=== PATIENT | female | born 1985 | race Caucasian/White ===

== ENCOUNTER → 2016-08-18 | Emergency (ER) | payer OTHER ==
[~2016-08-18] MED LIST: RHO(D) IMMUNE GLOBULIN 1,500 UNIT DISP.SYRIN IM ONE
[2016-08-18 11:25] VITALS: BMI 21.5
--- NOTE | 2016-08-18 12:19 | PDOC ---
History of Present Illness - History of Present Illness Initial Comments: 08/18/16 12:19 The patient is a 31 year old female, 6 weeks , , with no significant past medical history, who presents to the emergency department with vaginal bleeding in today. She states she noticed vaginal bleeding this morning when she went to the bathroom. She also reports very mild abdominal cramps. She states her two children were born full-term without complications. She states she has not seen her [employer] for this yet. She denies chest pain, shortness of breath, headache and dizziness. She denies fever, chills, nausea, vomit, diarrhea and constipation. She denies dysuria, frequency, urgency and hematuria. Allergies: NKDA PCP - Dr. Montana Olson <Jacy French - Last Filed: 08/18/16 13:47> <Rupa Quiñones - Last Filed: 08/18/16 15:52> - General Chief Complaint: Vaginal Bleeding Stated Complaint: BLEEDING (6 WKS ) Time Seen by Provider: 08/18/16 11:29 Past History <Jacy French - Last Filed: 08/18/16 13:47> - Past Medical History Asthma: Yes Cancer: No Cardiac Disorders: No Diabetes: No HTN: No Seizures: No Thyroid Disease: No - Psycho/Social/Smoking Cessation Hx Anxiety: No Suicidal Ideation: No Smoking History: Never smoked Have you smoked in the past 12 months: No Hx Alcohol Use: No Drug/Substance Use Hx: No Substance Use Type: None Hx Substance Use Treatment: No <Rupa Quiñones - Last Filed: 08/18/16 15:52> - Past Medical History Allergies/Adverse Reactions: Allergies Allergy/AdvReac Type Severity Reaction Status Date / Time No Known Allergies Allergy Verified 08/18/16 11:25 Home Medications: Ambulatory Orders Multivitamin [Poly-Vitamin] 1 each PO DAILY 08/18/16 Review of Systems - Review of Systems Able to Perform ROS?: Yes Comments:: 08/18/16 12:20 GENERAL/CONSTITUTIONAL: No fever or chills. No weakness. HEAD, EYES, EARS, NOSE AND THROAT: No change in vision. No ear pain or discharge. No sore throat. CARDIOVASCULAR: No chest pain or shortness of breath. RESPIRATORY: No cough, wheezing, or hemoptysis. GASTROINTESTINAL: No nausea, vomiting, diarrhea or constipation. GENITOURINARY: No dysuria, frequency, or change in urination. MUSCULOSKELETAL: No joint or muscle swelling or pain. No neck or back pain. REPRODUCTIVE: (+) vaginal bleeding in 6th week of SKIN: No rash NEUROLOGIC: No headache, vertigo, loss of consciousness, or change in strength/ sensation. ENDOCRINE: No increased thirst. No abnormal weight change. HEMATOLOGIC/LYMPHATIC: No anemia, easy bleeding, or history of blood clots. ALLERGIC/IMMUNOLOGIC: No hives or skin allergy. <Jacy French - Last Filed: 08/18/16 13:47> *Physical Exam - Vital Signs Last Vital Signs Temp Pulse Resp BP Pulse Ox 98.6 F 75 20 130/66 100 08/18/16 11:23 08/18/16 11:23 08/18/16 11:08/18/16 11:08/18/16 11:23 - Physical Exam Comments: 08/18/16 12:21 GENERAL: Awake, alert, and fully oriented, in no acute distress HEAD: No signs of trauma EYES: PERRLA, EOMI, sclera anicteric, conjunctiva clear ENT: Auricles normal inspection, hearing grossly normal, nares patent, oropharynx clear without exudates. Moist mucosa NECK: Normal ROM, supple, no lymphadenopathy, JVD, or masses LUNGS: Breath sounds equal, clear to auscultation bilaterally. No wheezes, and no crackles HEART: Regular rate and rhythm, normal S1 and S2, no murmurs, rubs or gallops ABDOMEN: Soft, nontender, normoactive bowel sounds. No guarding, no rebound. No masses EXTREMITIES: Normal range of motion, no edema. No clubbing or cyanosis. No cords, erythema, or tenderness NEUROLOGICAL: Cranial nerves II through XII grossly intact. Normal speech, normal gait SKIN: Warm, Dry, normal turgor, no rashes or lesions noted. <Jacy French - Last Filed: 08/18/16 13:47> - Vital Signs Last Vital Signs Temp Pulse Resp BP Pulse Ox 98.6 F 75 20 130/66 100 08/18/16 11:23 08/18/16 11:23 08/18/16 11:23 08/18/16 11:23 08/18/16 11:23 - Physical Exam Comments: : No external lesions. +Mod blood in the vault. No adnexal tenderness. Os closed. <Rupa Quiñones - Last Filed: 08/18/16 15:52> ED Treatment Course - LABORATORY CBC & Chemistry Diagram: 08/18/16 12:22 08/18/16 12:22 - RADIOLOGY Radiograph Interpretation: 08/18/16 13:47 Transabdominal US in was read by Dr. Rogel at 13:42 Impression: single intrauterine gestation of 12 weeks 6 days. heart rate 144 bpm. recommend US level II anatomic survey at 21-22 weeks gestation. <Jacy French - Last Filed: 08/18/16 13:47> - LABORATORY CBC & Chemistry Diagram: 08/18/16 12:22 08/18/16 12:22 <Rupa Quiñones - Last Filed: 08/18/16 15:52> Medical Decision Making - Medical Decision Making Patient found to have a 12 6/7 WGA intrauterine on ultrasound. Rhogam given, as she is Rh negative. She has scheduled follow-up with Dr. Morrow. <Rupa Quiñones - Last Filed: 08/18/16 15:52> *DC/Admit/Observation/Transfer - Attestations Scribe Attestion: 08/18/16 12:21 Documentation prepared by Jacy French, acting as medical billing manager for Rupa Quiñones MD, <Jacy French - Last Filed: 08/18/16 13:47> - Discharge Dispostion Admit: No <Rupa Quiñones - Last Filed: 08/18/16 15:52> Diagnosis at time of Disposition: Threatened - Discharge Dispostion Disposition: HOME Condition at time of disposition: Stable - Referrals Referrals: Montana Olson MD [Primary Care Provider] - - Patient Instructions Printed Discharge Instructions: DI for Threatened Print Language: [place]
[2016-08-18 12:21] LABS: URINE APPEARANCE SLCLOUDY; URINE BILIRUBIN NEGATIVE (NEGATIVE); URINE COLOR STRAW; URINE GLUCOSE (UA) NEGATIVE (NEGATIVE); URINE KETONE NEGATIVE (NEGATIVE); URINE LEUK ESTERASE NEGATIVE (NEGATIVE); URINE NITRITE NEGATIVE (NEGATIVE); URINE PROTEIN NEGATIVE (NEGATIVE); URINE UROBILINOGEN NEGATIVE E.U./dl (0.2-1.0)
[2016-08-18 12:26] LABS: URINE BLOOD 3+ (NEGATIVE)
[2016-08-18 12:32] LABS: BASOPHIL 0.3 % (0-2.0); EOSINOPHIL 0.4 % (0-4.5); MCH 28.9 pg (25.7-33.7); MCHC 33.6 g/dl (32.0-36.0); MEAN CELL VOLUME 85.8 fl (80-96); MEAN PLT VOLUME 8.7 fl (7.5-11.1); NEUTROPHILS 81.1 % (42.8-82.8); PLATELET COUNT 154 K/MM3 (134-434); RDW 13.6 % (11.6-15.6); WHITE BLOOD COUNT 8.8 K/mm3 (4.0-10.0)
[2016-08-18 12:33] LABS: URINE RBC 1297 /hpf (0-3); URINE WBC 1 /hpf (3-5)
[2016-08-18 13:00] LABS: ALBUMIN 3.7 g/dl (3.4-5.0); ANION GAP 10 (8-16); CO2 26 mmol/L (21-32); CREATININE 0.6 mg/dL (0.55-1.02); GLUCOSE,RANDOM 78 mg/dL (74-106); SGOT/AST 8 U/L (15-37); SGPT/ALT 14 U/L (12-78)
[2016-08-18 13:16] LABS: ALK PHOS 54 U/L (45-117); BILIRUBIN,TOTAL 0.3 mg/dL (0.2-1.0); TOT PROT 7.1 g/dl (6.4-8.2)
[2016-08-18 14:36] VITALS: BP 123/74; PULSE 74; TEMP 98.5
== END | disposition home or self-care (01) ==
LOC: JER 11:15
PROC: 3E0234Z Introduction of Serum, Toxoid and Vaccine into Muscle, Percutaneous Approach (ICD-10-PCS; principal; 2016-08-18)
DX: O20.0 Threatened abortion (principal); O36.0910 Maternal care for other rhesus isoimmunization, first trimester, not applicable or unspecified; Z3A.12 12 weeks gestation of pregnancy
CPT/HCPCS: 36415; 76801-TC; 80053; 81003; 81015; 84702; 85025; 86850; 86900; 86901; 86999; 96372; 99283-25; J1561

== ENCOUNTER 2023-06-29 09:12 | Emergency (ER) | payer OTHER ==
[2023-06-29 09:17] VITALS: BP 130/80; PULSE 93; RESP 18; TEMP 97.9; BMI 23.1
== END 2023-06-29 09:58 | disposition home or self-care (01) ==
LOC: JERFT 09:12
DX: H60.92 Unspecified otitis externa, left ear (principal); H92.02 Otalgia, left ear
CPT/HCPCS: 99283-25